=== PATIENT | male | born 2005 | race Caucasian/White ===

== ENCOUNTER 2025-02-21 12:45 | Emergency (ER) | payer OTHER, SELFPAY ==
[2025-02-21 13:02] VITALS: BP 122/69; PULSE 85; O2SAT 100
[2025-02-21 13:09] VITALS: BP 125/90; PULSE 102; RESP 16; TEMP 36.9; O2SAT 99; BMI 19.3
[2025-02-21] MEDS: TET/DIPHTH/PERT-ADULT 0.5ML SYRINGE 0.5 ML IM (13:11)
[2025-02-21] MEDS: cephALEXin 500MG CAPSULE 1000 MG PO (13:13)
--- NOTE | 2025-02-21 13:40 | HMH.EDGENADL ---
Discharge Plan Disposition Patient Disposition: Home, Self-Care Prescriptions Prescriptions: New cephalexin 500 mg capsule 1,000 mg PO BID 5 Days Qty: 20 0RF Referrals Follow up/Referrals: Provider,Referral, MD [Primary Care Provider] - See instructions Activity Restrictions/Add. Instructions Additional Instructions/Restrictions: Do not submerge foot in fresh water or salt water for 48 hours. Antibiotic twice daily for 5 days. Call your family doctor to establish care for this visit to the emergency department and schedule follow-up within 48 hours to ensure improvement. If you have any worsening of your condition or any other concerning signs or symptoms, return to the emergency department or your primary care doctor for further evaluation. Clinical Impressions Clinical Impression: Laceration of sole of foot Instructions Patient Instructions: DI for Laceration Repair Print Language Print Language: Telugu Discharge ED Provider: Fortino Jimenez General Adult HPI General Chief complaint: Wound/Laceration Stated complaint: AO cut on bottom of right foot Time Seen by Provider: 02/21/25 12:53 Mode of Arrival: Family Vehicle Source of Information: Patient and Medical Record Description of Symptoms (Recalled from ER Triage Doc. by RN): Pt c/o laceration to the sole of his R foot. States he was running down a gravel road barefoot several times and he feels he got his foot caught on a nail. He also has a 1 cm older cut to lateral R great toe that he feels is already infected . He has not washed wound and bleeding is controlled at this time. He is unsure of tdap being UTD on TDAP. History of Present Illness HPI narrative: Please note that above description of symptoms, in this electronic medical record under categorization of recalled from ER triage doctor by RN are reflective of an initial nursing assessment, however, is not reflective of my full history and physical exam that was personally taken and clarified. Consequentially, this preceding description of symptoms, which may include the patient's categorized chief complaint in the EMR, do not reflect my personal clinical impression, and the ultimate description of history of present illness and patient stated complaints should be deferred to this section of the note. Unless stated otherwise or congruent with this section of the note, additional signs, symptoms, or incongruence should be interpreted as inaccurate with my clinical impression. Related Data Previous Rx's ?Medication ?Instructions ?Recorded cephalexin 500 mg capsule 1,000 mg (2 x 500 mg) PO BID 5 02/21/25 days #20 caps Allergies Allergy/AdvReac Type Severity Reaction Status Date / Time No Known Allergies Allergy Verified 02/21/25 13:44 [facility] Disclaimer: The information contained in this section may have been updated after the patient was seen, as this information can be updated by other users. Social History Smoking Status: Current every day smoker alcohol intake: current current occupational status: unemployed Travel in the last 8 weeks: None ROS Obtained: Yes All systems reviewed & no additional complaints except as documented Physical Exam General General appearance: alert Head Head exam: atraumatic and normocephalic Eye Eye exam: Present normal appearance, PERRL and EOMI Neck Neck exam: Present normal inspection, full ROM and trachea midline Respiratory Respiratory exam: Absent respiratory distress, wheezes, stridor, accessory muscle use or prolonged expiratory phase Cardiovascular Cardiovascular exam: Present other (Pulses equal symmetric in upper and lower extremities) Abdominal Exam Abdominal exam: Present soft; Absent distention, tenderness or pulsatile mass Extremities Exam Extremities exam: Present other (skin tear on R calc); Absent edema Neurological Exam Neurological exam: Present alert, oriented X3 and CN II-XII intact; Absent motor sensory deficit Skin Skin exam: Present warm and dry; Absent diaphoresis or erythema Medical Decision Making Medical Records Medical records reviewed: Yes I reviewed the patient's medical records. Screening: Per USPSTF and CDC recommendations, given the prevalence of disease in our region, it is our hospital?s policy to screen for HIV and viral Hepatitis for all patients aged 18 and over and those with ongoing risk factors. Kash Inquiry Pt receiving controlled substance: No Kash was queried for this patient: No Vital Signs: 02/21/25 13:02 02/21/25 13:09 Temperature 98.5 F Temperature Source Oral Pulse Rate 85 Pulse Rate [Right] 102 H Respiratory Rate 16 Blood Pressure 122/69 Blood Pressure [Right Arm] 125/90 Blood Pressure Mean 86 Blood Pressure Mean [Right Arm] 101 Blood Pressure Source [Right Arm] Automatic Cuff 02 Sat by Pulse Oximetry 100 99 Oxygen Delivery Method Room Air Orders (Tests/Meds): ED MEDICATIONS Discontinued Medications Generic Name Dose Route Start Last Admin Trade Name Freq PRN Reason Stop Dose Admin Cephalexin HCl 1,000 mg 02/21/25 13:00 02/21/25 13:13 Cephalexin 500mg Capsule PO 02/21/25 13:01 1,000 mg ONCE ONE Administration Tetanus/Reduced Diphtheria/Acell Pertussis 0.5 ml 02/21/25 13:00 02/21/25 13:11 Tet/Diphth/Pert-Adult 0.5ml Syringe IM 02/21/25 13:01 0.5 ml .ONCE ONE Administration Medical Decision Narrative: This is a 19-year-old male presenting with right foot laceration. He states that he cut the middle aspect of his right foot yesterday while kicking a board that had a nail in it. Today, he was running barefoot outside, cut his foot on gravel. Came in for further evaluation after smoking 6 joints. Patient states that the pain is minimal, able to bear weight. States that he does not have insurance or family medicine care, so came for further evaluation. History obtained with patient. On arrival, clinically well, but mildly tangential. He is disheveled and covered in dirt. Bottom of his foot has a 5 cm triangular flap that is superficial skin tear on his calcaneus. Also has a 2 cm well-healing laceration on the medial aspect of his right foot at the base of his first metatarsal. Differential includes laceration, skin tear, skin soft tissue infection, foreign body, among others. Laceration was cleaned. No evidence of violation of subcutaneous tissue, so x-rays were considered, not deemed necessary. Patient was given first dose of Tdap and Keflex. Laceration dressed, once able to further reevaluate after being cleaned out. Could remove skin, but then patient would have large defect on the sole of his foot and I feel skin appropriately covers it. Dressed with iodine/petroleum gauze. Because patient at baseline without signs or symptoms of clinical decompensation, deemed appropriate for discharge. Results were relayed to patient[] who voiced understanding and were agreeable to outpatient management and follow up. I discussed my clinical impression with patient[] and answered all questions. At this time, the evidence for any other entities in the differential is insufficient to warrant any further testing or ED observation. This was explained as well. Advisory was given that persistent or worsening symptoms require further evaluation. I confirmed the understanding of this discussion. Catering And Events Manager disclaimer Much of this encounter note is an electronic oxide furnace tender spoken language to printed text. Electronic oxide furnace tender of the spoken language may permit errors. Although I have reviewed the note, some errors may still exist. Critical Care Critical Care Time Critical Care Time: No
[2025-02-21 14:39] VITALS: BP 110/78; PULSE 78; RESP 18; TEMP 36.8; O2SAT 98
== END 2025-02-21 14:39 | disposition home or self-care (01) ==
PROVIDERS: Emergency Provider Emergency Medicine
DX: S91.311A Laceration without foreign body, right foot, initial encounter (principal); W26.8XXA Contact with other sharp object(s), not elsewhere classified, initial encounter; Z23 Encounter for immunization
CPT/HCPCS: 90471; 90715; 99283

== ENCOUNTER 2025-03-04 00:55 | Emergency (ER) | payer OTHER, SELFPAY ==
[2025-03-04 01:04] VITALS: BP 141/76; PULSE 95; O2SAT 98
[2025-03-04 01:18] VITALS: BP 141/76; PULSE 64; RESP 18; TEMP 36.9; O2SAT 99; BMI 19.3
--- NOTE | 2025-03-04 01:19 | HMH.EDGENADL ---
Discharge Plan Disposition Patient Disposition: Xfer Psychiatric Hosp Condition: Fair Referrals Follow up/Referrals: Provider,Referral, [Primary Care Provider] - See instructions Clinical Impressions Clinical Impression: Suicidal ideation, Marijuana use Stand Alone Forms Stand Alone Forms: Transfer Record - ED Print Language Print Language: Belarusian Discharge ED Provider: Josef Kelly General Adult HPI General Chief complaint: Psychiatric Symptoms Stated complaint: mental health check Time Seen by Provider: 03/04/25 00:59 History of Present Illness HPI narrative: 17-year-old male presents to the ER reporting suicidal ideation with a plan but no attempt today. Patient reports he is homeless. He states his family in [place] kicked him out, he was taken in by a family member in [place] but the bills piled up so he was also then kicked out of there and brought to [place]. Patient reports he has been living in the [facility]. He reports all of these things keep building up and he has constant thoughts of killing himself. He has self harmed in the past by cutting his arms. He states he has a plan to either cut his throat, jump from a height, or shoot himself. He reports no homicidal ideations. No hallucinations. He reports he vapes but reportedly does not use any other illicit substances including alcohol or marijuana. He reports seasonal allergy symptoms but no other complaints or concerns. Patient reports he would like inpatient psychiatric help. He states he has been treated with antidepressants in the past but never had to be treated inpatient. He presented to the police station for psychiatric help and was brought to the ER by them, not under arrest. He reports having no guardian or parents accessible to him. Shortly later in the encounter, patient corrected his identification admitting to providing false identification information. He is in fact 19 years old. He has also been to this facility before under his true name and . Related Data Allergies Allergy/AdvReac Type Severity Reaction Status Date / Time No Known Allergies Allergy Verified 03/04/25 02:22 [facility] Disclaimer: The information contained in this section may have been updated after the patient was seen, as this information can be updated by other users. Social History Smoking Status: Current every day smoker alcohol intake: never current occupational status: other Travel in the last 8 weeks?: None ROS Obtained: Yes Systems reviewed as appropriate & no additional complaints except as documented per HPI Physical Exam General General appearance: alert and in no apparent distress Head Head exam: atraumatic and normocephalic Eye Eye exam: Present PERRL and EOMI ENT ENT exam: Present mucous membranes moist Neck Neck exam: Present normal inspection and full ROM Chest Chest inspection: Present symmetric chest wall rise Respiratory Respiratory exam: Present normal lung sounds bilaterally; Absent respiratory distress, wheezes or stridor Cardiovascular Cardiovascular exam: Present regular rate and normal rhythm Abdominal Exam Abdominal exam: Present soft; Absent distention or tenderness Extremities Exam Extremities exam: Present full ROM and other (Well-healing laceration on the bottom of the right foot with no infectious findings. Neurovascularly intact. Multiple linear scars on bilateral upper extremities reportedly from prior self-harm.) Neurological Exam Neurological exam: Present alert and oriented X3; Absent motor sensory deficit Psychiatric Psychiatric exam: Present normal affect, normal mood and suicidal ideation; Absent homicidal ideation Skin Skin exam: Present warm and dry Medical Decision Making Medical Records Screening: Per USPSTF and CDC recommendations, given the prevalence of disease in our region, it is our hospital?s policy to screen for HIV and viral Hepatitis for all patients aged 18 and over and those with ongoing risk factors. Kash Inquiry Pt receiving controlled substance: No Vital Signs: 03/04/25 01:04 03/04/25 01:18 Temperature 98.4 F Temperature Source Oral Pulse Rate 95 Pulse Rate [Right] 64 Respiratory Rate 18 Blood Pressure 141/76 Blood Pressure [Right Arm] 141/76 Blood Pressure Mean [Right Arm] 97 02 Sat by Pulse Oximetry 98 99 Oxygen Delivery Method Room Air Lab Data Lab Results 03/04/25 03:12: Urine Color Yellow, Urine Appearance Clear, Urine pH 7.0, Ur Specific Witter <= 1.005, Urine Protein Negative, Urine Glucose (UA) Negative, Urine Ketones Negative, Urine Blood Negative, Urine Nitrate Negative, Urine Bilirubin Negative, Urine Urobilinogen 0.2, Ur Leukocyte Esterase Negative, Urine WBC Occasional, Ur Squamous Epith Cells None, Urine Bacteria None, Urine Opiates Screen Negative, Urine Methadone Screen Negative, Ur Barbituates Screen Negative, Ur Phencyclidine Scrn Negative, Ur Amphetamines Screen Negative, U Benzodiazepines Scrn Negative, Urine Cocaine Screen Negative, U Marijuana (THC) Screen Positive H Orders (Tests/Meds): ORDERS Category Date Time Status UDS [Drug Screen,Urine] Stat Lab 03/04/25 03:12 Completed Urinalysis and Microscopic Stat Lab 03/04/25 03:12 Completed Medical Decision Narrative: In summary, this 17-year-old male presents to the emergency department today with suicidal ideation. Social determinants of health including homelessness complicate his overall situation including his ability for follow-up and support. On initial evaluation patient is hemodynamically stable, afebrile, GCS 15, reports suicidal ideation with multiple different but feasible plans to kill himself. He reports progressive worsening of symptoms and is requesting inpatient psychiatric treatment. Differential diagnosis includes but is not limited to depression, anxiety, suicidal ideation. I considered the possibility of underlying medical condition causing his symptoms but have extremely low suspicion for these. Physical exam is very reassuring and from my standpoint patient is medically cleared for psychiatric evaluation without further labs or imaging. Due to patient being a minor and not having parent or guardian accessibility, police have already reached out to CPS. I was planning to initiate consult and transfer to inpatient pediatric psychiatric facility, however the police with which he had presented had suspected that the patient had provided a false name and date of and they asked him further about this - he admitted that he is in fact 19 years old and his name is Enoch Higgins. He reports he was seen here recently for the laceration on his foot. He received a tdap booster at that time. Will continue to proceed with this encounter as an adult. Patient is in 1:1 monitoring. Most adult facilities will at least require a UA/UDS so this was ordered. Labs reviewed by me show no evidence of UTI but UDS is positive for THC. I do not believe this is a specific cause of his presentation tonight since patient describes longstanding progressive suicidal thoughts. transfer center contacted. [id number] Cleary and we discussed this case. She connected me with the [facility] nurse practitioner and after discussing this case she graciously accepted the patient for transfer to [facility]. Patient was accepted under Dr. Ahn for transfer to and evaluation at [facility]. Awaiting transportation availability at this time. Patient transferred in stable condition via ambulance to [facility]. Critical Care Critical Care Time Critical Care Time: No
--- NOTE | 2025-03-04 01:52 | PC.NURSE ---
pt provided the wrong information to registration, upon filling out paper registration form patient gave us the correct birthday and name. Registration has been provided the new information.
[2025-03-04 03:15] LABS: Appearance,Urine CLEAR (Clear); Bilirubin,Urine Negative (Negative); Blood, Urine Negative (Negative); Color,Urine YELLOW (Yellow); Glucose,Urine (UA) Negative (Negative); Ketones,Urine Negative (Negative); Leukocyte Esterase,Urine Negative (Negative); Microscopic, Urine URINE MICROSCOPIC (MICROSCOPIC); Nitrate,Urine Negative (Negative); Protein,Urine Negative (Negative); Specific Gravity, Urine <= 1.005 (1.005-1.030); Urobilinogen,Urine 0.2 EU/dl (0.2)
[2025-03-04 03:28] LABS: WBC,Urine Occasional #/hpf (0-3)
[2025-03-04 03:34] LABS: Amphetamine/Metha Screen,Urine Negative ng/ml (<1000)
[2025-03-04 03:35] LABS: Barbiturates Screen,Urine Negative ng/ml (<200); Benzodiazepines Screen,Urine Negative ng/ml (<200)
[2025-03-04 03:36] LABS: Cannabinoid Screen,Urine Positive ng/ml (<50); Cocaine Screen,Urine Negative ng/ml (<300)
[2025-03-04 03:38] LABS: Opiate Screen,Urine Negative ng/ml (<300)
[2025-03-04 03:39] LABS: Phencyclidine Screen,Urine Negative ng/ml (<25)
[2025-03-04 03:54] LABS: Methadone Screen,Urine Negative ng/ml (<300)
--- NOTE | 2025-03-04 04:18 | PC.NURSE ---
Dr. Kelly speaking [facility], and patient is accepted to [facility] by Dr. Ahn.
[2025-03-04 05:40] VITALS: BP 128/58; PULSE 68; RESP 14; TEMP 36.8; O2SAT 98
== END 2025-03-04 05:42 ==
PROVIDERS: Emergency Provider Emergency Medicine
DX: R45.851 Suicidal ideations (principal); F12.90 Cannabis use, unspecified, uncomplicated
CPT/HCPCS: 80307; 81001; 99285

== ENCOUNTER 2025-05-27 17:06 | Emergency (ER) | payer OTHER, SELFPAY ==
--- OUTSIDE RECORDS SUMMARY | 2023-05-12 18:00 | XMS_ITS | Continuity of Care Document ---
Author Organization [employer] Address [address] [place] [address] Phone Care Team Providers Care Wagon Person Name Role Phone Carlos Stein PhD Unavailable Unavailable Allergies, Adverse Reactions, Alerts Substance Reaction Status Criticality No Known Allergies Active No Inform ation Medications Medication Instructions Dosage Effective Dates (start - stop) Status Comments GUANFACINE 1 MG TABLET TAKE 1 TABLET BY MOUTH EVERYDAY AT BEDTIME - Active Procedures Procedure Date OFFICE/OUTPATIENT VISIT EST Office/outpatient visit,[place] [facility] Alcohol/Subs Interv 15-30 Min 1 As per patient privacy policy some of the clinical information may not be visible. Advance Directives Directive Yes / No Effective Date File Name No Information Encounters Encounter Description Practice Location Reason(s) For Visit Diagnoses Date Provider Providers Copied on Encounter [employer], [address] [place], [place], [id number] tel:[phone] [facility] No Information 3 Sarita Gonzalez. [address] [facility], [address], [place], [address]. tel:[phone] [employer], [address] [place], [place], [id number] tel:[phone] [facility] Autism spectrum disorderAttention deficit hyperactivity disorder (ADHD), unspecified ADHD typeAdjustment disorder with mixed anxiety and depressed moodOther Specified Counseling 2 No [facility] [employer] [facility], [address] [place], [place], [id number] tel:[phone] [facility] Other Specified CounselingAutism spectrum disorderPTSD (post-traumatic stress disorder)Attentio n deficit hyperactivity disorder (ADHD), unspecified ADHD typeAdjustment disorder with mixed anxiety and depressed mood 2 No [facility] [employer], [address] [place], [id number] tel:[phone] [facility] Autism spectrum disorderPTSD (post-traumatic stress disorder)Attentio n deficit hyperactivity disorder (ADHD), unspecified ADHD typeAdjustment disorder with mixed anxiety and depressed moodOther Specified Counseling 2 No [facility] [employer], [address] [place], [id number] tel:[phone] [facility] Autism spectrum disorderPTSD (post-traumatic stress disorder)Attentio n deficit hyperactivity disorder (ADHD), unspecified ADHD typeAdjustment disorder with mixed anxiety and depressed moodOther Specified Counseling 2 No [facility] [employer], [address] [place], [id number] tel:[phone] [facility] No Information 2 No [employer], [address] [place], [id number] tel:[phone] [facility] Autism spectrum disorderPTSD (post-traumatic stress disorder)Attentio n deficit hyperactivity disorder (ADHD), unspecified ADHD typeAdjustment disorder with mixed anxiety and depressed moodOther Specified Counseling 2 No [facility] [employer], [address] [place], [id number] tel:[phone] [facility] Autism spectrum disorderPTSD (post-traumatic stress disorder)Attentio n deficit hyperactivity disorder (ADHD), unspecified ADHD typeAdjustment disorder with mixed anxiety and depressed moodOther Specified Counseling 2 No Information [facility], [address] [place], [id number] tel:[phone] [facility] Autism spectrum disorderPTSD (post-traumatic stress disorder)Attentio n deficit hyperactivity disorder (ADHD), unspecified ADHD typeAdjustment disorder with mixed anxiety and depressed moodOther Specified Counseling 1 No Information OFFICE/OUTPA TIENT VISIT [facility], [address] [place] [place], [id number] tel:[phone] [facility] Nursing Comments (chief complaint) HPI (chief complaint) ear pain (chief complaint) Attention deficit hyperactivity disorder (ADHD), unspecified ADHD typeAdjustment disorder with mixed anxiety and depressed moodPTSD (post-traumatic stress disorder)Seasonal allergic rhinitis, unspecified trigger 1 No Information Office/outpa tient visit,[facility], [address] [place] [place], [id number] tel:[phone] [facility] Comments (chief complaint) Attention deficit hyperactivity disorder (ADHD), unspecified ADHD typeAdjustment disorder with mixed anxiety and depressed moodAutism spectrum disorderPTSD (post-traumatic stress disorder) 1 No Information [facility], [address] [place], [id number] tel:[phone] [facility] Autism spectrum disorderPTSD (post-traumatic stress disorder)Attentio n deficit hyperactivity disorder (ADHD), unspecified ADHD typeAdjustment disorder with mixed anxiety and depressed moodOther Specified Counseling 1 No Information As per patient privacy policy some of the clinical information may not be visible. Family History Family Member Type Diagnosis Age At Onset No Information Payers Payer name Insurance type Covered democrat ID Authoriza tion(s) No Information Social History Type Description Quantity Date Captured Comments Alcohol Use Details Unknown Caffeine Use Details Unknown Tobacco Use Status No Information Smoking Status No Information Sex Male Sexual Orientation Straight or heterosexual Sep Gender Identity Male History Of Present Illness Encounter Date Complaint History Of Prese nt Illness ear pain The pain is loca shilpa in the right ear. The severity of the problem is mild. The symptoms are random. Associated symptoms include dizziness, ear pressure and nasal congestion. Pertinent negatives include bleeding from ear(s), cough, ear popping, external ear redness/swelling or fever. HPI Patient here w/ father to discuss medications. Father reports that patient was endorsing some depression symptoms while on the medications so they stopped the sertraline. Patients symptoms continued. They stopped the risperidone and he feels much better. Patient and father would like to discuss stopping the guanfacine for the ADHD. Patient is agreeable to this as well. Nursing Comments Establish care, discuss meds/med refills pharmacy verified [facility] Nursing Comments Establish care, needing med refills, pt moved from [place] was living in hard situations with Step Dad pt moved here with Biological Father/ Step Mother pharmacy verified MSMAFather now with full custody and POAhas already started behavioral health here due to see CF in early October to estab care but comes in today to get refills on meds to continueSince moving is much less stressed and is weaning some on the zoloftpt denies suicidal thought or ideation or destructive behaviorAdjusting to new school and doing reasonably well with performanceWas admitted to psychiatric unit in [place] who started patient on meds Functional Status Date Functional Assessmen t No Information Instructions Date Instruction Additional Infor mation No Information Assessments Type Assessment Date No Information Patient Care Teams Name Effective Dates (start - stop) Status Members No Information
--- OUTSIDE RECORDS SUMMARY | 2025-05-27 17:15 | XMS_ITS | Clinical Summary ---
Author Organization [facility] are Address [address] [place] [id number] Phone Care Team Providers Care Broadcast Operations Engineer Name Role Phone Unavailable Unavailable Conditions or Problems No information available. Medications No information available. Medications Administered No information available. Allergies, Adverse Reactions, Alerts No information available. Results No information available. Plan of Care No information available. Procedures No information available. Vital Signs No information available. Immunizations No information available. Advance Directives No information available.
[2025-05-27 17:17] VITALS: BP 158/77; PULSE 92; RESP 17; TEMP 37.2; O2SAT 98; BMI 19.5
--- NOTE | 2025-05-27 17:24 | ED_ITS ---
<Statement entered by Ryann Muñiz DO - 05/28/25 20:13> I was consulted by the [facility], and we discussed the complexity of problems being addressed. I approve the treatment and management plan for this patient's care in the emergency department, thus performing a substantial portion of the medical decision making. Ryann Muñiz DO Patient's rash appeared scabbed in nature, there was no drainage, no surrounding erythema to suggest cellulitis at this time. No sloughing of the skin to suggest SJS. Discharge Plan Disposition Patient Disposition: Home, Self-Care Prescriptions Prescriptions: New prednisone 20 mg tablet 20 mg PO BID 14 Days Qty: 28 0RF hydrocortisone [Anti-Itch (HC)] 1 % ointment 1 applic topical BID PRN (Reason: itching) Qty: 28.35 0RF hydroxyzine HCl 25 mg tablet 25 mg PO Q8H PRN (Reason: itching) Qty: 30 0RF No Action cephalexin 500 mg capsule 1,000 mg PO BID 5 Days Qty: 20 0RF Referrals Follow up/Referrals: Provider,Referral, MD [Primary Care Provider, Medical] - See instructions Activity Restrictions/Add. Instructions Additional Instructions/Restrictions: Take meds as directed. Apply the hydrocortisone cream to rash as needed. If any worsening problems or concerns please return to ED or follow-up with PCP. Clinical Impressions Clinical Impression: Contact dermatitis Instructions Patient Instructions: Contact Dermatitis Print Language Print Language: Anguillan Discharge ED Provider: Ryann Muñiz General Adult HPI General Chief complaint: Skin/Abscess/Foreign Body Stated complaint: rash all over but and back area Time Seen by Provider: 05/27/25 17:15 Mode of Arrival: Ambulatory Source of Information: Patient Description of Symptoms (Recalled from ER Triage Doc. by RN): Patient states the last 3-4 weeks he has had a red itchy rash on his buttocks. Patient denies coming in contact with any poison erin or insects, states he tried putting petroleum jelly on it because that is all he has had, but thinks it is getting worse and spreading History of Present Illness HPI narrative: 19-year-old male presents to the ED today for complaint of red, raised, erythematous rash on his buttocks and the inside of his legs. He is not sure what it is. States that it is not anywhere else. He says that is getting worse and spreading. He has been putting Vaseline on it. He has not taken any Benadryl because he has not had any. No fevers or chills. No nausea or vomiting. No other symptoms. Related Data Previous Rx's ?Medication ?Instructions ?Recorded cephalexin 500 mg capsule 1,000 mg (2 x 500 mg) PO BID 5 02/21/25 days #20 caps hydrocortisone 1 % topical 1 applic topical BID PRN it jose 05/27/25 ointment (Anti-Itch #28.35 grams (hydrocortisone)) hydroxyzine HCl 25 mg tablet 25 mg PO Q8H PRN itching #30 tabs 05/27/25 prednisone 20 mg tablet 20 mg PO BID 14 days #28 tab s 05/27/25 Allergies Allergy/AdvReac Type Severity Reaction Status Date / Time No Known Allergies Allergy Verified 05/27/25 17:21 [facility] Disclaimer: The information contained in this section may have been updated after the patient was seen, as this information can be updated by other users. Social History (System 03/04/25 @ 08:06 by Kat Wilde) Smoking Status: Never smoker alcohol intake: current current occupational status: unemployed and other Travel in the last 8 weeks?: None Have you lived/traveled outside US in past 30 days?: No Contact w/someone who lives/traveled outside US past 30 days?: No Exposure to someone with infectious disease in past 14 days?: No Do you have a fever (greater than 100.4 F or 38 C)?: No Have you tested positive for COVID-19?: No Exposed to someone with COVID-19 in past 14 days?: No Do you have a sore throat?: No Do you have a cough?: No Do you have any weakness?: No Do you have any diarrhea?: No Are you experiencing any unusual bleeding?: No Do you have any muscle aches/pain?: No Do you have any abdominal pain?: No Are you experiencing loss of taste or smell?: No ROS Obtained: Yes Systems reviewed as appropriate & no additional complaints except as documented Constitutional Constitutional: Reports as per HPI Physical Exam General General appearance: alert and in no apparent distress Head Head exam: normocephalic Eye Eye exam: Present PERRL and EOMI ENT ENT exam: Present normal oropharynx and mucous membranes moist Neck Neck exam: Present full ROM and trachea midline Respiratory Respiratory exam: Present normal lung sounds bilaterally Cardiovascular Cardiovascular exam: Present regular rate, normal rhythm, normal heart sounds, +S1 and +S2 Extremities Exam Extremities exam: Present full ROM and normal capillary refill Neurological Exam Neurological exam: Present alert, oriented X3 and normal gait Skin Skin exam: Present warm, dry, rash, erythema and other (Parts of the rash scabbed over) Medical Decision Making Medical Records Screening: Per USPSTF and CDC recommendations, given the prevalence of disease in our alli on, it is our hospital?s policy to screen for HIV and viral Hepatitis for all patients aged 18 and over and those with ongoing risk factors. Kash Inquiry Pt receiving controlled substance: No Kash was queried for this patient: No Vital Signs: 05/27/25 17:17 05/27/25 17:45 Temperature 98.9 F 98.3 F Temperature Source Oral Temporal Artery Scan Pulse Rate 68 Pulse Rate [Right Brachial] 92 H Respiratory Rate 17 16 Blood Pressure 142/78 H Blood Pressure [Right Arm] 158/77 H Blood Pressure Mean [Right Arm] 104 Blood Pressure Source Automatic Cuff Blood Pressure Source [Right Arm] Automatic Cuff Blood Pressure Position Sitting Blood Pressure Position [Right Arm] Sitting 02 Sat by Pulse Oximetry 98 Oxygen Delivery Method Room Air Room Air Orders (Tests/Meds): ED MEDICATIONS Discontinued Medications Generic Name Dose Route Start Last Admin Trade Name Freq PRN Reason Stop Dose Admin Dexamethasone Sodium Phosphate 8 mg 05/27/25 17:21 05/27/25 17:30 Dexamethasone 4mg/Ml 1ml Vial IM 05/27/25 17:22 8 mg ONCE ONE Administration Medical Decision Narrative: patient is a 19-year-old male presenting to the emergency department for evaluation of rash. Patient is hemodynamically stable and nontoxic-appearing upon arrival, afebrile. Differential diagnosis includes poison erin, contact dermatitis, among others. Workup required as rash appears to be contact dermatitis from poison erin. Discussed with patient to take medicine and follow- up with PCP if it gets worse. Discussed return precautions. Patient is safe for discharge home Critical Care Critical Care Time Critical Care Time: No
[2025-05-27] MEDS: DEXAMETHASONE 4MG/ML 1ML VIAL 8 MG IM (17:30)
[2025-05-27 17:45] VITALS: BP 142/78; PULSE 68; RESP 16; TEMP 36.8; O2SAT 98
== END 2025-05-27 17:45 | disposition home or self-care (01) ==
PROVIDERS: Emergency Provider Student in an Organized Health Care Education/Training Program
DX: L25.9 Unspecified contact dermatitis, unspecified cause (principal)
CPT/HCPCS: 96372; 99283; J1100

== ENCOUNTER 2025-06-24 12:34 | Emergency (ER) | payer OTHER, SELFPAY ==
--- OUTSIDE RECORDS SUMMARY | 2005-10-25 01:00 | XMS_ITS | Encounter Summary ---
Author Organization [facility] Address [address] [place] [address] Care Team Providers Care Mail Carrier Technician Name Role Phone Unavailable Primary Care Provider Unavailabl e Encounter Details Date Type Department Care Team (Late st Contact Info) Description 2005 Hospital Encounter [facility] Division of Plastic Surgery [address] [place] [phone] Social History Tobacco Use Types Packs/Day Years Used Date Smoking Tobacco: Never Smokeless Tobacco: Never Alcohol Use Standard Drinks/Week Comments No 0 (1 standard drink = 0.6 oz pur e alcohol) Intimate Partner Violence Answer Date R ecorded If you are in a relationship , do you feel safe in that relationship? Yes 03/31/2018 Safe in relationship? (18 and older) Not on file 03/31/2018 Safety and Environment Answer Date Robert rded Do you have any concerns of physical abuse, sexual abuse, or neglect of your child? No 03/31/2018 Is an adult hurting you or your family? No 03/31/2018 Has someone ever touched you in a sexual way that was not ok with you? No 03/31/2018 Someone hurting you or family (18 and older) Not on file 03/31/2018 Historical abuse worry Not on file 8 If you have firearms in the home, are they all in locked storage AND unloaded? Not on file 03/31/2018 Sex and Gender Information Value Date Recorded Sex Assigned at Not on file Legal Sex Male 5:18 AM EST Gender Identity Not on file Sexual Orientation Not on file documented as of this encounter Consult Notes * Edt, Audit [place] - 04/21/2010 3:39 PM EDT documented in this encounter Plan of Treatment Not on file documented as of this encounter Visit Diagnoses Not on filedocumented in this encounter
--- OUTSIDE RECORDS SUMMARY | 2005-11-16 01:00 | XMS_ITS | Encounter Summary ---
Author Organization [facility] Address Formerly [facility] [place] [address] Care Team Providers Care Miter Cutter Name Role Phone Unavailable Primary Care Provider Unavailabl e Encounter Details Date Type Department Care Team (Late st Contact Info) Description [address] [facility] Division of Cardiology [address] [place] [phone] Social History Tobacco Use Types Packs/Day Years [...] this encounter Consult Notes * Edt, Audit [place] - 09/13/2010 4:06 PM EST documented in this encounter Plan of Treatment Not on file documented as of this encounter Visit Diagnoses Not on filedocumented in this encounter
--- OUTSIDE RECORDS SUMMARY | 2005-12-28 01:00 | XMS_ITS | Encounter Summary ---
Author Organization [facility] Address [facility] [place] [address] Care Team Providers Care Computer Operations Manager Name Role Phone Unavailable Primary Care Provider Unavailabl e Encounter Details Date Type Department Care Team (Late st Contact Info) Description 2005 Hospital Encounter [facility] Division of Plastic Surgery [address] [place] [phone] Social History Tobacco Use Types Packs/Day [...] on file documented as of this encounter Plan of Treatment Not on file documented as of this encounter Visit Diagnoses Not on filedocumented in this encounter
--- OUTSIDE RECORDS SUMMARY | 2006-01-25 01:00 | XMS_ITS | Encounter Summary ---
Author Organization [facility] Address formerly [facility] [place] [address] Care Team Providers Care Alodize Machine Helper Name Role Phone Unavailable Primary Care Provider Unavailabl e Encounter Details Date Type Department Care Team (Late st Contact Info) Description 01/25/2006 Hospital Encounter [facility] Division of Plastic Surgery [address] [place] [phone] Social History Tobacco Use Types Packs/Day [...]
--- OUTSIDE RECORDS SUMMARY | 2025-06-24 12:43 | XMS_ITS | Clinical Summary ---
Author Organization [employer] [facility] are Address [address] [place] [id number] Phone Care Team Providers Care Director Of Career Resources Name Role Phone Unavailable Unavailable Conditions or Problems No information available. Medications No information available. Medications Administered No information available. Allergies, Adverse Reactions, Alerts No information available. Results No information available. Plan of Care No information available. Procedures No information available. Vital Signs No information available. Immunizations No information available. Advance Directives No information available.
[2025-06-24 12:44] VITALS: BP 129/69; PULSE 76; RESP 16; TEMP 36.6; O2SAT 99; BMI 19.3
--- OUTSIDE RECORDS SUMMARY | 2025-06-24 12:44 | XMS_ITS | Clinical Summary ---
Author Organization Healthcare Address [address] [place] [address] Care Team Providers Care Sexual Abuse Counsellor Name Role Phone Unavailable Primary Care Provider Unavailabl e Social History Tobacco Use Types Packs/Day Years Used Date Smoking Tobacco: Never Assessed Sex and Gender Information Value Date Recorded Sex Assigned at Not on file Legal Sex Male 4:04 AM EDT Gender Identity Not on file Sexual Orientation Not on file Plan of Treatment Not on file Insurance [facility] MEDICAID
--- OUTSIDE RECORDS SUMMARY | 2025-06-24 12:44 | XMS_ITS | Clinical Summary ---
Author Organization [facility] Address [address] [place] [id number] Care Team Providers Care Extracorporeal Circulation Specialist Name Role Phone Unknown, Pcp Primary Care Provider Unavailabl e Source Comments [facility] is fully rolled out with thefollowing exceptions:[facility] Allergies No known active allergies Medications mirtazapine (REMERON) 15 MG tablet Take 1 Tab (15 mg total) by mouth every evening. 04/06/2018 Active risperiDONE (RisperDAL) 3 MG tablet Take 0.5 Tabs (1.5 mg total) by mouth 2 times a day. 15 Tab 1 04/06/2018 Active guanFACINE (TENEX) 1 MG tablet Take 0.5 Tabs (0.5 mg total) by mouth every evening. 15 Tab 1 04/06/2018 Active guanFACINE (TENEX) 1 MG tablet Take 1.5 Tabs (1.5 mg total) by mouth every morning. 45 Tab 1 04/06/2018 Active Active Problems Problem Noted Date Diagnosed Date Attention deficit hyperactivity disorder, combin ed type 04/01/2018 Autism spectrum disorder 04/01/2018 DMDD (disruptive mood dysregulation disorder) Behavior disorder 01/08/2010 Hypersensitivity 01/08/2010 Mixed receptive-expressive language disorder 01/2010 Behavior disorder 10/15/2009 Family History Medical History Relation Name Comments ADHD/ADD Brother Learning Disabilities Brother Learning Disabilities Maternal Grandmother Depression Mother Learning Disabilities Mother Learning Disabilities Other brother Relation Name Status Comments Brother Maternal Grandmother Mother Other brother Alive Social History Tobacco Use Types Packs/Day Years [...] file 03/31/2018 Safety and Environment Answer Date Rboert rded Do you have any concerns of [...] on file Sexual Orientation Not on file Last Filed Vital Signs Vital Sign Reading Time Taken Comments Blood Pressure 113/57 04/05/2018 8:23 PM EDT Pulse 63 03/31/2018 11:41 PM EDT Temperature 36.4 C (97.5 F) 03/31/2018 11:41 PM EDT Respiratory Rate 20 03/31/2018 11:4 1 PM EDT Oxygen Saturation - - Inhaled Oxygen Concentration - - Weight 44.8 kg (98 lb 12.3 oz) 03/31/20 18 11:41 PM EDT Height 147.5 cm (4' 10.07 ) 04/01/2018 4:26 PM E DT Head Circumference 53.4 cm 11/15/2011 12 :03 PM EST Body Mass Index 20.59 03/31/2018 11:41 PM EDT Body Mass Index Percentile 78.87% 04/01/2018 4:2 6 PM EDT Growth Chart: CDC (Boys, 2-2 0 Years) Plan of Treatment Health Maintenance Due Date Last Done Comments MMR IMMUNIZATION (1 of 1 - S tandard series) 2006 DTAP/Tdap/Td IMMUNIZATION (1 - Tdap) 2012 VARICELLA IMMUNIZATION (1 of 2 - 13+ 2-dose series) 2018 HPV IMMUNIZATION (1 - Male 3 -dose series) 2020 MENINGOCOCCAL B VACCINE (1 o f 2 - Standard) 2021 COVID-19 Vaccine (1 - 2023-2 5 season) 2024 HEPATITIS B IMMUNIZATION (1 of 3 - 19+ 3-dose series) 2024 AMB SEASONAL FLU VACCINE (#1) 09/06/2025 HIB IMMUNIZATION Aged Out No longer e ligible based on patient's age to complete this topic IPV IMMUNIZATION Aged Out No longer e ligible based on patient's age to complete this topic MCV4 IMMUNIZATION Aged Out No longer eligible based on patient's age to complete this topic PNEUMOCOCCAL IMMUNIZATION Aged Out No longer eligible based on patient's age to complete this topic Respiratory Syncytial Virus (RSV) <20mo Aged Out No longer eligible b ased on patient's age to complete this topic Insurance Member Subscriber Plan / Payer (Ef fective 2017-Present) Name:Enoch Bravo Relation to Subscriber:Self Name:Enoch Bravo Payer ID:[id number] (NAIC) Group ID:Not on file Type:HMO Medicaid Address: [place], [place] Member Subscriber Plan / Payer (Ef fective 2017-Present) Name:Enoch Bravo Relation to Subscriber:Self Name:Enoch Bravo Payer ID:[id number] (NAIC) Group ID:Not on file Type:O Medicaid Address: [place], [place] Care Teams Extracorporeal Circulation Specialist Relationship Specialty Start Date End Date Unknown, Pcp PCP - General 02/07/22
--- OUTSIDE RECORDS SUMMARY | 2025-06-24 12:44 | XMS_ITS | Clinical Summary ---
Author Organization [facility] [place] [address] Phone Care Team Providers Care Golf [employer] Architect Name Role Phone Dav Martinez MD Primary Care Provider [phone] Allergies No known active allergies Medications * This document contains information received from the source organization and may not represent a complete record from that organization. sertraline (ZOLOFT) 25 mg Oral TabletIndications: Mood disorder,Anxiety Take 1 tablet PO daily. 30 Tab 1 0 Active risperiDONE (RISPERDAL) 3 mg Oral TabletIndications: Autism spectrum disorder Take 1/2 tablet (1.5 mg) twice a day. 30 Tab 1 0 Active guanFACINE (INTUNIV ER) 1 mg Oral Tablet Sustained Release 24 hrIndications:Auti sm spectrum disorder Take 1 tablet daily for 7 days 7 Tab 0 Active guanFACINE 2 mg Oral Tablet Sustained Release 24 hrIndications:Atte ntion deficit hyperactivity disorder (ADHD), combined type Take 2 mg by mouth daily. 30 Tab 0 Active Active Problems Problem Noted Date Diagnosed Date MICHAEL (generalized anxiety disorder) 07/30/2024 Paranoid psychosis 07/30/2024 Autism spectrum disorder 09/04/2019 Resolved Problems Problem Noted Date Diagnosed Date Resolved Date Anxiety 01/01/2020 07/30/2024 Attention deficit hyperactiv ity disorder (ADHD), combined type 09/04/2019 07/30/2024 Mood disorder 09/04/2019 07/30/2024 Dental infection 11/20/2015 11/20/2015 Surgical History Surgery Date Site/Laterality Comments DENTAL SURGERY DENTAL SURGERY 11/20/2015 Mouth/N/A X-rays, Crowns, Pulpotomies, Fillings, Extractions x and cleanings; Surgeon: Dilip Sutton DMD; [facility]; Service: Dental Medical History Medical History Date Comments Attention deficit hyperactivity disorder (ADHD) OCD (obsessive compulsive disorder) Social History Tobacco Use Types Packs/Day Years Used Date Smoking Tobacco: Passive Smo ke Exposure - Never Smoker Smokeless Tobacco: Never Alcohol Use Standard Drinks/Week Comments Never 0 (1 standard drink = 0.6 oz pur e alcohol) AUDIT-C Answer Date Recorded Frequency of Alcohol Consumption Never 07/25/2019 Average Number of Drinks Not on file 019 Frequency of Binge Drinking Not on file 07/07 Sex and Gender Information Value Date Recorded Sex Assigned at Not on file Legal Sex Male 7:13 AM EDT Gender Identity Not on file Sexual Orientation Not on file Obstetrics History Growth Chart Information Age Height Weight Eleayg-cya-wijp th Percentile BMI Percentile Head Circum Head Circum Percentile Date 19 years 177.8 cm (5' 10 ) 58.1 kg (128 lb) 3.06%* 2023 13 years 57.2 kg (126 lb) 2018 11 years 37.6 kg (83 lb) 2016 10 years 133.4 cm (4' 4.5 ) 27.2 kg (60 lb) 19.84%* 2015 * [facility] (Boys, 2-20 Years) Last Filed Vital Signs Vital Sign Reading Time Taken Comments Blood Pressure 151/84 09/20/2024 12:37 AM EST Pulse 85 09/20/2024 12:37 AM EST Temperature 36.6 C (97.8 F) 09/20/2024 12:37 AM EST Respiratory Rate 18 09/20/2024 12:37 AM EST Oxygen Saturation 95% 09/20/2024 12:37 AM EST Inhaled Oxygen Concentration - - Weight 58.1 kg (128 lb) 09/20/2024 12:36 AM EST Height 177.8 cm (5' 10 ) 09/20/2024 12:36 AM EST Body Mass Index 18.37 09/20/2024 12:36 AM EST Plan of Treatment Health Maintenance Due Date Last Done Comments Annual Wellness Exam 2008 Meningococcal B Vaccine (1 of 2 - Standard) 2021 COVID-19 Vaccine (1 - 2023- season) 2024 Hepatitis B Vaccine (1 of 3 - 19+ 3-dose series) 2024 Influenza Vaccine (#1) 2025 9, 07/20/2018, 08/29/2017, Additional history exists DTaP/TDaP/Td (4 - Td or Tdap) 06/16/2027 06/16/2017, 09/24/2009, 12/29/2006 HPV Completed 08/29/2017, 06/17/2016 Pneumococcal Vaccine 0-49 Aged Out No longer eligible based on patient's age to complete this topic Insurance [facility] [place] [address] [place] [employer] [place] [employer] PPO Care Teams Golf Course Architect Relationship Specialty Start Date End Date Dav Martinez MD [address] [address] PCP - General Pediatrics 03/04/14
[2025-06-24] MEDS: DEXAMETHASONE 4MG TABLET 10 MG PO (13:15)
--- NOTE | 2025-06-24 13:40 | ED_ITS ---
Discharge Plan Disposition Patient Disposition: Home, Self-Care Condition: Good Prescriptions Prescriptions: New prednisone 10 mg tablet 10 mg PO DIRECTED Qty: 42 0RF Rx Instructions: Please take 40 mg day 1-7, 30 mg day 8-9, 20 mg day 10-12, 10 mg day 13-14 No Action cephalexin 500 mg capsule 1,000 mg PO BID 5 Days Qty: 20 0RF prednisone 20 mg tablet 20 mg PO BID 14 Days Qty: 28 0RF hydrocortisone [Anti-Itch (HC)] 1 % ointment 1 applic topical BID PRN (Reason: itching) Qty: 28.35 0RF hydroxyzine HCl 25 mg tablet 25 mg PO Q8H PRN (Reason: itching) Qty: 30 0RF Referrals Follow up/Referrals: Provider,Referral, MD [Primary Care Provider, Medical] - See instructions Activity Restrictions/Add. Instructions Additional Instructions/Restrictions: I want you to waste picker steroids from [facility] in [place]. You will take 40 mg day 1-7, 30 mg day 8-9, 20 mg day 10-12, 10 mg day 13-14. Please complete the taper in its entirety even if symptoms improve and resolve to avoid complications of starting on high dose steroids. Do not take this steroid today. Start taking it tomorrow. If you have any new or worsening symptoms please return to the ER for further evaluation. Clinical Impressions Clinical Impression: Contact dermatitis due to urushiol Instructions Patient Instructions: Poison Pat, Poison Guys, Poison Sumac Print Language Print Language: Barbadian Discharge ED Provider: Aden Mcginnis Adult HPI General Chief complaint: Skin/Abscess/Foreign Body Stated complaint: poison pat,itching on arms chest and neck Time Seen by Provider: 06/24/25 12:48 Mode of Arrival: Ambulatory Source of Information: Patient Description of Symptoms (Recalled from ER Triage Doc. by RN): Patient states he was climbing a tree on Monday06/21/25 and then developed a red itchy rash on his arms and legs. History of Present Illness HPI narrative: This is a 19-year-old male patient, with no past medical history no daily medications, who is presenting to the Emergency Department today for evaluation of poison pat exposure. The patient states that yesterday afternoon he was climbing a tree and yesterday evening after climbing the tree he developed a rash on his upper extremities. This rash is intensely pruritic in nature and is erythematous and raised. He states that he has been scratching this rash on his arms incessantly and it is now spread upwards on his neck and towards his face as well as throughout his torso. He was recently seen in the emergency department for very similar symptoms with a similar story. We have discussed the fact that he should probably stop climbing trees. He has not had any mucosal membrane involvement. No fevers. No chills Related Data Previous Rx's ?Medication ?Instructions ?Recorded cephalexin 500 mg capsule 1,000 mg (2 x 500 mg) PO BID 5 02/21/25 days #20 caps hydrocortisone 1 % topical 1 applic topical BID PRN it jose 05/27/25 ointment (Anti-Itch #28.35 grams (hydrocortisone)) hydroxyzine HCl 25 mg tablet 25 mg PO Q8H PRN itching #30 tabs 05/27/25 prednisone 20 mg tablet 20 mg PO BID 14 days #28 tab s 05/27/25 prednisone 10 mg tablet 10 mg PO DIRECTED #42 tab s 06/24/25 Allergies Allergy/AdvReac Type Severity Reaction Status Date / Time No Known Allergies Allergy Verified 06/24/25 12:48 [facility] Disclaimer: The information contained in this section may have been updated after the patient was seen, as this information can be updated by other users. Social History (System 03/04/25 @ 08:06 by Kat Wilde) Smoking Status: Never smoker alcohol intake: current current occupational status: unemployed and other Travel in the last 8 weeks?: None Have you lived/traveled outside [place] in past 30 days?: No Contact w/someone who lives/traveled outside US past 30 days?: No Exposure to someone with infectious disease in past 14 days?: No Do you have a fever (greater than 100.4 F or 38 C)?: No Have you tested positive for COVID-19?: No Exposed to someone with COVID-19 in past 14 days?: No Do you have a sore throat?: No Do you have a cough?: No Do you have any weakness?: No Do you have any diarrhea?: No Are you experiencing any unusual bleeding?: No Do you have any muscle aches/pain?: No Do you have any abdominal pain?: No Are you experiencing loss of taste or smell?: No ROS Obtained: Yes Systems reviewed as appropriate & no additional complaints except as documented Physical Exam General General appearance: other (See MDM) Respiratory Respiratory exam: Present other (See MDM) Cardiovascular Cardiovascular exam: Present other (See MDM) Neurological Exam Neurological exam: Present other (See MDM) Medical Decision Making Medical Records Medical records reviewed: Yes I reviewed the patient's medical records. Screening: Per USPSTF and CDC recommendations, given the prevalence of disease in our region, it is our hospital?s policy to screen for HIV and viral Hepatitis for all patients aged 18 and over and those with ongoing risk factors. Kash Inquiry Pt receiving controlled substance: No Kash was queried for this patient: No Vital Signs: 06/24/25 12:44 Temperature 98 F Temperature Source Oral Pulse Rate [Left Brachial] 76 Respiratory Rate 16 Blood Pressure [Left Arm] 129/69 Blood Pressure Mean [Left Arm] 89 Blood Pressure Source [Left Arm] Automatic Cuff Blood Pressure Position [Left Arm] Sitting 02 Sat by Pulse Oximetry 99 Oxygen Delivery Method Room Air Orders (Tests/Meds): ED MEDICATIONS Discontinued Medications Generic Name Dose Route Start Last Admin Trade Name Alfredq PRN Reason Stop Dose Admin Dexamethasone 10 mg 06/24/25 13:06 06/24/25 13:15 Dexamethasone 4mg Tablet PO 06/24/25 13:07 10 mg ONCE ONE Administration Medical Decision Narrative: In summary, this is a 19-year-old male patient who is presenting to the emergency department today for evaluation of poison pat exposure. This patient has no comorbidities that would complicate their medical management or care. On initial evaluation of the patient they were resting comfortably in no acute distress and nontoxic in appearance. They are hemodynamically stable, saturating well room air, and are neurologically intact. On physical examination the patient has a raised erythematous rash that appears to be intensely pruritic on his bilateral upper extremities as well as his anterior trunk and anterior neck. There is no sloughing of the mucosal membranes. There is no open wounds present. He is afebrile. Differential diagnosis includes poison pat dermatitis, poison oak dermatitis, poison sumac dermatitis, as well as other contact dermatitides. No labs or imaging are indicated for this workup. I have discussed with the patient that he would likely need a several week course of steroids given the fact that his dermatitis is encompassing such a large surface area of his body. He states that he does not make lots of money and he is unsure if he will be able to afford this at the pharmacy. He is asked if we can administer a steroid here in the emergency department. I have taken this into consideration and we have administered 10 mg of oral dexamethasone to the patient. I have also sent a 2-week course of a prednisone taper to the pharmacy. I have asked that he at least attempt to waste picker this medication and complete the entire course of steroids. Turn precautions have been given. At this time all questions have been answered and all parties are agreeable to decision to discharge home Critical Care Critical Care Time Critical Care Time: No
[2025-06-24 13:42] VITALS: BP 124/78; PULSE 83; RESP 20; TEMP 36.6; O2SAT 98
== END 2025-06-24 13:44 | disposition home or self-care (01) ==
PROVIDERS: Emergency Provider Student in an Organized Health Care Education/Training Program
DX: L23.7 Allergic contact dermatitis due to plants, except food (principal); W60.XXXA Contact with nonvenomous plant thorns and spines and sharp leaves, initial encounter
CPT/HCPCS: 99282; 99283; J8540